=== PATIENT | male | born 1995 | race Caucasian/White ===

== ENCOUNTER 2021-12-02 16:49 | Emergency (ER) | payer OTHER, SELFPAY ==
[2021-12-02 17:13] VITALS: BP 153/91; PULSE 95; RESP 18; TEMP 36.8; O2SAT 97; BMI 27.9
[2021-12-02 18:05] LABS: Appearance Urine Clear (Clear); Bilirubin Urine Negative (Negative); Blood Urine 3+ (Negative); Color Urine Yellow (Yellow); Glucose Urine Negative (Negative); Ketones Urine 1+ (Negative); Leukocyte Esterase Urine Trace (Negative); Nitrite Urine Negative (Negative); Protein Urine Negative (Negative); Urobilinogen Urine 0.2 (0.2-1.0); pH Urine 6.5 (5.0-8.5)
[2021-12-02 18:08] LABS: Bacteria Urine Few; RBC Urine >100 (0-2); Squamous Epithelial Cell Urine Few (None-Few)
[2021-12-02 18:09] LABS: Mucus Urine Moderate
--- NOTE | 2021-12-02 19:57 | CRLHL7_ITS ---
For Patients: As a result of the Century Cures Act, medical imaging exams and procedure reports are released immediately into your electronic medical record. You may view this report before your referring provider. If you have questions, please contact your health care provider. INDICATION: Abdominal pain. TECHNIQUE: CT abdomen and pelvis without contrast. COMPARISON: May 19, 2017. FINDINGS: Lower chest: Scattered dependent atelectasis. Liver: Normal in size and attenuation. No suspicious masses. Gallbladder and bile ducts: No stones or inflammation. No biliary dilatation. Pancreas: Unremarkable. No mass or inflammation. Spleen: Normal in size. No masses. Adrenal glands: Normal in size. No nodules. Kidneys: Left-sided hydroureteronephrosis secondary to 9 millimeter obstructing UPJ stone. Left renal cystic lesion with tiny calcification. GI tract: Unremarkable. Normal in caliber. No sign of mass or inflammation. Normal appendix. Vasculature: Abdominal aorta is normal in caliber. Lymph nodes: No lymphadenopathy. Peritoneum/Abdominal Wall: Tiny fat containing umbilical hernia. No sign of mass or infiltration. No free air or significant free fluid. Pelvis: Unremarkable. No pelvic masses. Bones: Unremarkable for age. IMPRESSION: Left-sided hydroureteronephrosis secondary to a 9 millimeter obstructing UPJ stone. Please note that all CT scans at this facility use dose modulation, iterative reconstruction, and/or weight-based dosing when appropriate to reduce radiation dose to as low as reasonably achievable. Dictated by Fernando Palafox MD @ 12/02/2021 8:32:00 PM (Electronically Signed)
--- NOTE | 2021-12-02 20:13 | ED_ITS ---
HPI - Abdominal Pain General Date Seen: 12/02/21 Chief Complaint: Flank Pain Stated Complaint: Possible kidney stone Time Seen by Provider: 12/02/21 19:50 Source: patient Mode of arrival: ambulatory Limitations: no limitations History of Present Illness HPI narrative: Patient is a very nice 26-year-old gentleman who presents here with left-sided flank discomfort with radiation to his left groin, this occurred approximately 6-7 hours ago, is a associated with some blood in his urine. The blood on off for the last couple days took some ibuprofen approximately 10:00 a.m. and his pain is now gone away since he has had to wait 3 hours in the lobby. He has had no nausea no vomiting associated with this, but says it feels like a previous kidney stone he had. Denies any trauma falls fevers chills dysuria frequency rashes, coughing wheezing or shortness of breath. Otherwise healthy on no chronic medications, history of a recent vasectomy done 2 months ago by 1 of the general surgeons here. Related Data Previous Rx's Medication Instructions Recorded tamsulosin 0.4 mg capsule (Flomax) 0.4 mg PO DAILY #20 caps 12/02/21 Allergies Allergy/AdvReac Type Severity Reaction Status Date / Time No Known Allergies Allergy Unknown Verified 12/02/21 17:18 Review of Systems Status of ROS Reports: 10 or more systems reviewed and unremarkable except as noted in History and below PFSH PFS Social History Smoking Status: Never smoker Exam Narrative: Exam Narrative: Patient is seen with no apparent distress in room 5, pupils equal round reactive to light there is no scleral icterus redness TMs are normal oropharynx normal neck is supple full range of motion chest is clear bilaterally with easy respirations heart sounds are normal his abdomen is soft there is no guarding no past splenomegaly bowel sounds are normal. No CVA tenderness normal is noted. Skin reveals no petechiae or rashes moves all extremities independently and well. Const: Vital Signs, click to edit/add: Vital Signs - 24 hr 12/02/21 17:13 Temperature 98.2 F Pulse Rate [Left P ulse Oximeter] 95 Respiratory Rate 18 Blood Pressure [Ri ght Upper Arm] 153/91 H Pulse Oximetry 97 Oxygen Delivery Me thod Room Air Documenting provider has reviewed patient's vital signs: yes Course Course Hospital Course: Discussed with the patient and his that this is a rather large stone 50% chance of him passing out, I think we active maximize his medical management by using the Flomax, ibuprofen, Percocet, and Zofran as needed we went over signs and symptoms of worsening, he should follow-up I would recommend that he follow up with primary care this week, get a Urology referral. Return here to the ER if signs and symptoms of worsening occur that we discussed. Vital Signs Vital signs: Initial Vital Signs Temperature 98.2 F 12/02/21 17:13 Temperature Source Temporal Artery Scan 12/02/21 17:13 Pulse Rate 95 12/02/21 17:13 Respiratory Rate 18 12/02/21 17:13 Blood Pressure 153/91 H 12/02/21 17:13 Blood Pressure Mean 111 12/02/21 17:13 Blood Pressure Position Sitting 12/02/21 17:13 Pulse Oximetry 97 12/02/21 17:13 Oxygen Delivery Method 12/02/21 17:13 Vital Signs Temperature 98.2 F 12/02/21 17:13 Pulse Rate 95 12/02/21 17:13 Respiratory Rate 18 12/02/21 17:13 Blood Pressure 153/91 H 12/02/21 17:13 Pulse Oximetry 97 12/02/21 17:13 Oxygen Delivery Method 12/02/21 17:13 Temperature 98.2 F 12/02/21 17:13 Pulse Rate 95 12/02/21 17:13 Respiratory Rate 18 12/02/21 17:13 Blood Pressure 153/91 H 12/02/21 17:13 Pulse Oximetry 97 12/02/21 17:13 Oxygen Delivery Method 12/02/21 17:13 MDM - Abdominal Pain MDM Narrative Medical decision making narrative: During this evaluation of this patient I considered multiple differential diagnosis is which included the life-threatening such as appendicitis, aortic aneurysm, mesenteric ischemia, bowel perforation, volvulus, and bowel obstruction. Other differential diagnosis is include but are not limited to cholecystitis, pancreatitis, hepatitis, gastritis, GERD, diverticulitis, peptic ulcer disease, pyelonephritis/UTI, renal colic/stone, testicular torsion as well as other acute scrotal processes, inflammatory bowel disease, as well as other etiologies Differential Diagnosis Differential diagnosis: Likely abdominal pain, acute appendicitis, calculus of kidney, constipation, diverticulitis, gastroenteritis, pancreatitis and small bowel obstruction Medical Records Attestation: I reviewed the patient's medical records. Lab Data Attestation: I reviewed the patient's lab results. Labs: Lab Results 12/02/21 Range/Units 17:20 Urine Color Yellow (Yellow) Urine Appearance Clear (Clear) Urine pH 6.5 (5.0-8.5) Ur Specific [place] 1.020 (1.000-1.030) Urine Protein Negative (Negative) Urine Glucose (UA) Negative (Negative) Urine Ketones 1+ A (Negative) Urine Blood 3+ A (Negative) Urine Nitrite Negative (Negative) Urine Bilirubin Negative (Negative) Urine Urobilinogen 0.2 (0.2-1.0) Ur Leukocyte Esterase Trace A (Negative) Urine RBC >100 A (0-2) Urine WBC 10-25 A (0-5) Ur Squamous Epith Cells Few (None-Few) Urine Bacteria Few A (None) Urine Mucus Moderate A (None) Imaging Data CT Chest/Ab/Pelvis: Attestation: I have reviewed the pertinent imaging results. My impression: Left-sided large UPJ stone with hydronephrosis Radiologist's impression: Patient: JOSEP RAMIREZ Facility:?[facility] Patient ID:?[id number] Site Patient ID:?[id number]. Site :?[id number] Study:?CT Abdomen/Pelvis W/O-12/02/2021 8:06:34 PM Ordering Physician:Carlos Bravo Final Report: INDICATION: Abdominal pain. TECHNIQUE: CT abdomen and pelvis without contrast. COMPARISON: May 19, 2017. FINDINGS: Lower chest: Scattered dependent atelectasis. Liver: Normal in size and attenuation. No suspicious masses. Gallbladder and bile ducts: No stones or inflammation. No biliary dilatation. Pancreas: Unremarkable. No mass or inflammation. Spleen: Normal in size. No masses. Adrenal glands: Normal in size. No nodules. Kidneys: Left-sided hydroureteronephrosis secondary to 9 millimeter obstructing UPJ stone. Left renal cystic lesion with tiny calcification. GI tract: Unremarkable. Normal in caliber. No sign of mass or inflammation. Normal appendix. Vasculature: Abdominal aorta is normal in caliber. Lymph nodes: No lymphadenopathy. Peritoneum/Abdominal Wall: Tiny fat containing umbilical hernia. No sign of mass or infiltration. No free air or significant free fluid. Pelvis: Unremarkable. No pelvic masses. Bones: Unremarkable for age. IMPRESSION: Left-sided hydroureteronephrosis secondary to a 9 millimeter obstructing UPJ stone. Please note that all CT scans at this facility use dose modulation, iterative reconstruction, and/or weight-based dosing when appropriate to reduce radiation dose to as low as reasonably achievable. Dictated by Fernando Palafox MD @ 12/02/2021 8:32:00 PM (Electronic Signature) Discharge Plan Discharge Clinical Impression: Renal colic Patient Disposition: Home w/ Parent or Adult Condition: Stable Instructions: Renal Colic (ED), Lithotripsy (DC) Additional Instructions: Home rest use of ibuprofen 800 mg p.o. t.i.d., use of breakthrough Vicodin for the discomfort, Zofran for nausea vomiting, and then also Flomax. Follow-up with Urology, as this is a rather large stone. Return here if increasing fevers chills nausea vomiting. Prescriptions: New tamsulosin [Flomax] 0.4 mg capsule 0.4 mg PO DAILY Qty: 20 2RF Follow Up/Referrals: Generic,Amb Provider [Primary Care Provider] - Stand Alone Forms: [employer] Info Instructions
[2021-12-02 21:17] VITALS: BP 135/78; PULSE 79; RESP 18; TEMP 36.8; O2SAT 97
[2021-12-02 21:18] VITALS: BP 135/78; PULSE 79; RESP 18; TEMP 36.8
== END 2021-12-02 21:18 | disposition home or self-care (01) ==
PROVIDERS: Emergency Provider Family Medicine
DX: N13.2 Hydronephrosis with renal and ureteral calculous obstruction (principal); Z87.442 Personal history of urinary calculi; Z79.899 Other long term (current) drug therapy
CPT/HCPCS: 74176; 81001; 87086; 99284

== ENCOUNTER 2022-02-08 05:05 | Emergency (ER) | payer OTHER, SELFPAY ==
[2022-02-08 05:11] VITALS: BP 147/95; PULSE 78; RESP 16; TEMP 36.7; O2SAT 99
[2022-02-08] MEDS: GI COCKTAIL (VISC LIDO/ANTACID) 30 ML PO (05:20)
--- NOTE | 2022-02-08 05:26 | ED.ABDPAIN ---
HPI - Abdominal Pain General Chief Complaint: Abdominal Pain Stated Complaint: Stomach burning Time Seen by Provider: 02/08/22 05:09 History of Present Illness HPI narrative: Pt is a 26 year old gentleman with a history of gerd who comes in with worsening burning in his epigastrium.Pt had an episode of gastroenteritis 1 week ago. Those symptoms of nausea and vomiting have resolved but his reflux and dyspeptic symptoms have worsened. Pt states that food doesnt seem to make his symptoms worse. Pt is concerned that he may have an ulcer. Pt has no blood in his stool. No weight loss, night sweats, chills, chest pain or shortness of breath. No overt abd pain only burning in his epigastrium. Related Data Home Medications Medication Instructions Recorded Confirmed omeprazole .ROUTE DAILY 02/08/22 Previous Rx's Medication Instructions Recorded tamsulosin 0.4 mg capsule (Flomax) 0.4 mg PO DAILY #20 caps 12/02/21 Allergies Allergy/AdvReac Type Severity Reaction Status Date / Time No Known Allergies Allergy Unknown Verified 12/02/21 17:18 Review of Systems Status of ROS Reports: 10 or more systems reviewed and unremarkable except as noted in History and below [facility] Medical History Acid reflux Kidney stones Surgical History No significant past surgical history Social History Smoking Status: Never smoker Do you use any of these nicotine containing products: None How often do you have a drink containing alcohol: never How often do you have six or more drinks on one occasion: Never AUDIT-C Alcohol total score: 0 Non-prescribed substance use: denies use Exam Narrative: Exam Narrative: EXAM GENERAL: Patient appears comfortable and well. EYES: No scleral icterus. THYROID: no thyroid nodules or thyromegaly. LYMPH: No supraclavicular or cervical lymphadenopathy. SKIN: Visible skin seen during exam normal or with benign process only. EXT: No dependent lower extremity pedal edema. HEART: Regular rate and rhythm with no murmurs, rubs, or gallops. LUNGS: Clear to auscultation bilaterally with no crackles or wheezes. ABD: Soft, non tender, non distended. PSYCH: Good eye contact, speech is not pressured. Const: Vital Signs, click to edit/add: Vital Signs - 24 hr 02/08/22 05:11 Temperature 98.1 F Pulse Rate [Left F emoral] 78 Respiratory Rate 16 Blood Pressure [Ri ght Upper Arm] 147/95 H Pulse Oximetry 99 Oxygen Delivery Me thod Room Air Course Course Hospital Course: Pt seen and examined. GI cocktail given with worsening of symptoms. Reevaluation(s) Reevaluation #1: Because symptoms worsened with GI cocktail, I did proceed with EKG which was negative for ischemia upon my review. CT abd and pelvis was normal. CBC, CMP Amlyase normal upon my review except mild elevation of transaminases. Time: 06:47 Vital Signs Vital signs: Initial Vital Signs Temperature 98.1 F 02/08/22 05:11 Temperature Source Temporal Artery Scan 02/08/22 05:11 Pulse Rate 78 02/08/22 05:11 Respiratory Rate 16 02/08/22 05:11 Blood Pressure 147/95 H 02/08/22 05:11 Blood Pressure Mean 112 02/08/22 05:11 Blood Pressure Position Sitting 02/08/22 05:11 Pulse Oximetry 99 02/08/22 05:11 Oxygen Delivery Method 02/08/22 05:11 Vital Signs Temperature 98.1 F 02/08/22 05:11 Pulse Rate 78 02/08/22 05:11 Respiratory Rate 16 02/08/22 05:11 Blood Pressure 147/95 H 02/08/22 05:11 Pulse Oximetry 99 02/08/22 05:11 Oxygen Delivery Method 02/08/22 05:11 Temperature 98.1 F 02/08/22 05:11 Pulse Rate 78 02/08/22 05:11 Respiratory Rate 16 02/08/22 05:11 Blood Pressure 147/95 H 02/08/22 05:11 Pulse Oximetry 99 02/08/22 05:11 Oxygen Delivery Method 02/08/22 05:11 MDM - Abdominal Pain MDM Narrative Medical decision making narrative: Pt is a 26 year old gentleman with a history of gerd whose symptoms have worsened since an episode of gastroenteritis 1 week ago. Pt has no other alarming symptoms. Pt given GI cocktail with worsening of symptoms. Workup then proceeded to CT of abd and pelvis, cbc, cmp, amylase all negative except mild elevation of transaminases. Pt then began to feel better. Pt chronically on PPI which we will move to BID for 2 weeks. If no improvement of if symptoms worsen, would recommend follow up with PCP to consider EGD. Would also recommend PCP follow up with possible US of Gallbladder if symptoms worsen again. Differential Diagnosis Differential diagnosis: Likely abdominal pain, acute appendicitis, constipation, diverticulitis, endometriosis, gastroenteritis, pancreatitis and small bowel obstruction Medical Records Attestation: I reviewed the patient's medical records. Lab Data Labs: Lab Results 02/08/22 02/08/22 02/08/22 Range/Units 05:45 05:45 05:45 WBC 6.45 (4.50-11.00) K/uL RBC 5.01 (4.30-5.90) m/uL Hgb 14.9 (13.5-17.5) gm/dL Hct 43.9 (37.0-53.0) % MCV 88 (80-100) fL MCH 30 (26-34) pg MCHC 34 (32-36) gm/dL RDW Coeff of [place] 12.7 (11.5-15.5) % Plt Count 265 (140-440) K/uL Neut % (Auto) 38.7 L (42.0-72.0) % Lymph % (Auto) 51.0 H (20-44) % [place] % (Auto) 8.4 (0.0-11.0) % Eos % (Auto) 1.7 (0.0-7.0) % Baso % (Auto) 0.2 (0.0-3.0) % Neut # (Auto) 2.50 (1.7-7.0) K/uL Lymph # (Auto) 3.30 H (0.90-2.90) K/uL [place] # (Auto) 0.50 (0.00-0.90) K/UL Eos # (Auto) 0.11 (0.00-0.50) K/uL Baso # (Auto) 0.01 (0.00-0.30) K/uL Sodium 141 (135-149) mmol/L Potassium 3.7 (3.6-5.1) mmol/L Chloride 106 (96-114) mmol/L Carbon Dioxide 26 (20-32) mmol/L BUN 16 (5-24) mg/dL Creatinine 0.7 (0.5-1.5) mg/dL Estimated GFR 130 ml/min Glucose 103 (60-115) mg/dL Calcium 9.0 (8.4-10.6) mg/dL Total Bilirubin 1.2 (0.1-1.5) mg/dL AST 72 H (12-35) U/L ALT 77 H (4-50) U/L Alkaline Phosphatase 55 (40-150) U/L Troponin I < 0.01 L (0.01-0.04) ng/mL Total Protein 7.4 (6.0-8.3) g/dL Albumin 4.5 (3.3-5.0) g/dL Amylase 36 (18-89) U/L Discharge Plan Discharge Clinical Impression: Dyspepsia Patient Disposition: Home, Self-Care Condition: Stable Instructions: Epigastric Pain (ED) Additional Instructions: Increase Omeprazole to twice daily for 2 weeks. Follow up with Primary Care to discuss EGD or Ultrasound if symptoms do not improve. Activity Level: No Restrictions Discharge Diet: Regular Prescriptions: No Action omeprazole .ROUTE DAILY tamsulosin [Flomax] 0.4 mg capsule 0.4 mg PO DAILY Qty: 20 2RF Follow Up/Referrals: Provider,Not a Local [Primary Care Provider] - Stand Alone Forms: [employer] Info Instructions
--- NOTE | 2022-02-08 05:36 | CRLHL7_ITS ---
For Patients: As a result of the Century Cures Act, medical imaging exams and procedure reports are released immediately into your electronic medical record. You may view this report before your referring provider. If you have questions, please contact your health care provider. INDICATION: epigastric paincompare to CTT 12.02.2021 and 05.19.2017 INDICATION: Epigastric abdominal pain. TECHNIQUE: CT abdomen and pelvis acquired with IV contrast. 95 cc of Isovue-300 IV. COMPARISON: CT of the abdomen and pelvis, 12/02/2021, 05/19/2017. FINDINGS: Lower chest: Mild bibasilar dependent atelectasis. Liver: Unremarkable. Spleen: Unremarkable. Pancreas: Unremarkable. Gallbladder and bile ducts: Unremarkable. Kidneys: There is a dilated calyx in the superior pole of the left kidney, which contains a stone, and associated cortical thinning. The stone measures 5 millimeters on image 55, series 2. this finding appears stable when compared with 12/02/2021. There is no hydronephrosis, hydroureter, or obstructive urolith. Pelvic phleboliths are present. Adrenal glands: Unremarkable. GI tract: Unremarkable. Appendix is normal in caliber, and appears retrocecal. The appendix is well seen on image 111, series 2. Vascular structures: Negative. No sign of aneurysm. Lymph nodes: Nonenlarged retroperitoneal lymph nodes. These are stable when compared with 12/02/2021. Similar findings were present on the CT from 05/19/2017. Miscellaneous: Unremarkable. No free air or significant free fluid. Pelvic Organs: Unremarkable. Bones: Unremarkable for age. IMPRESSION: 1. No acute findings are seen to explain abdominal pain. 2. Left hydronephrosis and proximal hydroureter, secondary to a stone in the left proximal ureter on the CT from 12/02/2021, have resolved today. 3. The pancreas appears normal on CT. No adjacent inflammatory changes. 4. No gastric or duodenal wall thickening. Dictated by Valerio Joseph MD @ 02/08/2022 6:42:37 AM Please note that all CT scans at this facility use dose modulation, iterative reconstruction, and/or weight-based dosing when appropriate to reduce radiation dose to as low as reasonably achievable. Dictated by: Valerio Joseph MD @ 02/08/2022 06:43:07 (Electronically Signed)
[2022-02-08 05:51] LABS: Basophils Absolute Auto 0.01 K/uL (0.00-0.30); Basophils Percent Auto 0.2 % (0.0-3.0); Eosinophils Absolute Auto 0.11 K/uL (0.00-0.50); Eosinophils Percent Auto 1.7 % (0.0-7.0); Hematocrit 43.9 % (37.0-53.0); Hemoglobin* 14.9 gm/dL (13.5-17.5); Mean Corpuscular HGB Conc 34 gm/dL (32-36); Mean Corpuscular Hemoglobin 30 pg (26-34); Mean Corpuscular Volume 88 fL (80-100); Monocytes Percent Auto 8.4 % (0.0-11.0); Neutrophils Percent Auto 38.7 % (42.0-72.0); Platelet Count* 265 K/uL (140-440); RDW Coefficient of Variation % 12.7 % (11.5-15.5); Red Blood Count 5.01 m/uL (4.30-5.90); White Blood Count* 6.45 K/uL (4.50-11.00)
[2022-02-08 06:05] LABS: Slide Review Reflex No
[2022-02-08 06:07] LABS: Albumin* 4.5 g/dL (3.3-5.0)
[2022-02-08 06:08] LABS: Chloride* 106 mmol/L (96-114); Potassium* 3.7 mmol/L (3.6-5.1); Sodium* 141 mmol/L (135-149)
[2022-02-08 06:10] LABS: Amylase* 36 U/L (18-89); Aspartate Amino Transferase* 72 U/L (12-35); Bilirubin Total* 1.2 mg/dL (0.1-1.5); Blood Urea Nitrogen* 16 mg/dL (5-24); Carbon Dioxide* 26 mmol/L (20-32); Creatinine* 0.7 mg/dL (0.5-1.5); Estimated Glomerular Filt Rate 130 ml/min; Total Protein* 7.4 g/dL (6.0-8.3)
[2022-02-08 06:11] LABS: Alanine Aminotransferase* 77 U/L (4-50); Alkaline Phosphatase* 55 U/L (40-150); Glucose* 103 mg/dL (60-115)
[2022-02-08 06:33] LABS: Troponin I* < 0.01 ng/mL (0.01-0.04)
[2022-02-08 06:59] VITALS: BP 133/76; PULSE 71; RESP 16
== END 2022-02-08 07:00 | disposition home or self-care (01) ==
PROVIDERS: Emergency Provider Internal Medicine
DX: R10.13 Epigastric pain (principal)
CPT/HCPCS: 36415; 74177; 80053; 82150; 84484; 85025; 93005; 99283; 99284; 99285; A9270; Q9967

== ENCOUNTER 2022-08-04 16:49 | Emergency (ER) | payer OTHER, SELFPAY ==
[2022-08-04 17:11] VITALS: BP 128/80; PULSE 110; TEMP 36.7; O2SAT 96; BMI 27.2
[2022-08-04 19:34] VITALS: BP 140/78; PULSE 70; RESP 18; O2SAT 97
--- NOTE | 2022-08-04 20:48 | ED.ABDPAIN ---
HPI - Abdominal Pain General Time Seen by Provider: 20:48 Date Seen: 08/04/22 Chief Complaint: Abdominal Pain Stated Complaint: Stomach issues Time Seen by Provider: 08/04/22 19:22 Source: patient, RN notes reviewed and old records reviewed Mode of arrival: ambulatory Limitations: no limitations History of Present Illness HPI narrative: Akira is a very pleasant 27-year-old male with history of acid reflex presents to the emergency room with abdominal discomfort diarrhea and 1 episode of vomiting today. Patient notes that he awoke this morning and states he just did not feel well. He had discomfort in his abdomen and he shows this to be the upper mid aspect of his belly and this was associated with diarrhea that has been nonbloody throughout the day. He has gone at least 8 times. He did have 1 episode of vomiting at approximately 1445 hours. He notes that he feels like he has acid reflux as well. He notes that this happened 2 weeks ago and then shortly before [place]. Usually these episodes only last a few days. He notes the abdominal discomfort seems to be a little bit worse than in the past. Two weeks ago he also notes that he had an episode of tingling of his toes and hands that lasted for 1 hour. It got better once he took a warm bath. This is not the case today. Patient denies any fever chills cough cold congestion. He has had no known exposures to illnesses. He has not been on antibiotics recently. He has not had any travel or eaten any uncooked foods. No history of weight loss, ulcerative colitis or Crohn's disease. He is typically and [facility] patient. States he called them today and never received a phone call back. Related Data Home Medications Medication Instructions Recorded Confirmed omeprazole .Route DAILY 02/08/22 04/20/22 Previous Rx's Medication Instructions Recorded tamsulosin 0.4 mg capsule (Flomax) 0.4 mg PO DAILY #20 caps 12/02/21 amoxicillin 500 mg capsule 1,000 mg (2 x 500 mg) PO QDAY #20 04/20/22 caps Allergies Allergy/AdvReac Type Severity Reaction Status Date / Time No Known Allergies Allergy Unknown Verified 08/04/22 17:15 Review of Systems Status of ROS Reports: 10 or more systems reviewed and unremarkable except as noted in History and below Const Reports: malaise; Denies: fever or chills ENMT Denies: throat pain, neck pain, difficulty swallowing or hoarseness Cardio Denies: chest pain, palpitations, swelling of feet/ankles, lightheadedness or shortness of breath with exertion Resp Denies: shortness of breath, cough or wheezing GI Reports: abdominal pain, nausea, vomiting, heartburn and diarrhea; Denies: constipation, difficulty swallowing or blood in stool Denies: painful urination or urinary frequency Musculo Denies: back pain, neck pain or extremity pain Neuro Denies: numbness in extremities Endo Denies: excessive urination or excessive thirst Allergy/Immuno Denies: wheezing PFSH [facility] Medical History Acid reflux ?K21.9 - Gastro-esophageal reflux disease without esophagitis (ICD-10) Kidney stones ?N20.0 - Calculus of kidney (ICD-10) Surgical History No significant past surgical history Social History Smoking Status: Never smoker Do you use any of these nicotine containing products: None How often do you have a drink containing alcohol: never How often do you have six or more drinks on one occasion: Never AUDIT-C Alcohol total score: 0 Non-prescribed substance use: denies use Exam Narrative: Exam Narrative: Akira is alert and oriented. Very pleasant gentleman. He is somewhat fatigued in appearance but nontoxic. Eyes are clear. Oral cavity with moist mucous membranes. Neck is supple without lymphadenopathy. Heart with tachycardia but regular rhythm. Lungs are clear bilaterally. Abdomen is soft and nontender throughout. Moving all extremities. Lower extremities without edema or calf tenderness. Const: Vital Signs, click to edit/add: Vital Signs - 24 hr 08/04/22 17:11 08/04/22 19:34 08/04/22 21:00 Temperature 98.0 F Pulse Rate [Right Pulse Oximeter] 110 H 70 78 Respiratory Rate 18 18 Blood Pressure [Ri ght Upper Arm] 128/80 140/78 H 124/76 Pulse Oximetry 96 97 98 Oxygen Delivery Me thod Room Air Room Air Room Air Documenting provider has reviewed patient's vital signs: yes Course Course Hospital Course: Differential diagnosis includes but is not limited to irritable bowel, pancreatitis, colitis, enterocolitis, Crohn's disease, ulcerative colitis, viral gastroenteritis. Will place IV and use Zofran and Toradol for discomfort and nausea. 1 L of normal saline. Will check urinalysis, CBC, comprehensive panel, lipase, CRP is. At this time abdominal exam is reassuring and patient has no recent history of risk factors for C diff or food-borne illness. Vital Signs Vital signs: Initial Vital Signs Temperature 98.0 F 08/04/22 17:11 Temperature Source Temporal Artery Scan 08/04/22 17:11 Pulse Rate 110 H 08/04/22 17:11 Pulse Rhythm Regular 08/04/22 17:11 Pulse Strength 3+ Normal 08/04/22 17:11 Blood Pressure 128/80 08/04/22 17:11 Blood Pressure Mean 96 08/04/22 17:11 Blood Pressure Position Sitting 08/04/22 17:11 Pulse Oximetry 96 08/04/22 17:11 Oxygen Delivery Method Room Air 08/04/22 17:11 Vital Signs Temperature 98.0 F 08/04/22 17:11 Pulse Rate 110 H 08/04/22 17:11 Blood Pressure 128/80 08/04/22 17:11 Pulse Oximetry 96 08/04/22 17:11 Oxygen Delivery Method Room Air 08/04/22 17:11 Temperature 98.0 F 08/04/22 17:11 Pulse Rate 78 08/04/22 21:00 Respiratory Rate 18 08/04/22 21:00 Blood Pressure 124/76 08/04/22 21:00 Pulse Oximetry 98 08/04/22 21:00 Oxygen Delivery Method Room Air 08/04/22 21:00 MDM - Abdominal Pain MDM Narrative Medical decision making narrative: 1. Diarrhea-no significant episodes of diarrhea while in the emergency room. No complaints of blood. This is been a recurrent problem. I am wondering if patient has underlying irritable bowel verses other GI pathology. At this time I do suggest follow-up with Dr. Ross, GI physician at the [facility]. I think Akira would benefit from endoscopy and colonoscopy. He has been on PPIs for 8 years at this point. 2. Abdominal pain-improved after Zofran and Toradol. No worrisome findings on exam abdominal exam or with laboratory values. No right upper quadrant tenderness or right lower quadrant rebound. 3. Disposition-home at this time. Suggest pushing fluids. Follow-up with [facility]. Note magnesium technically within normal limits but given chronic PPI use would suggest magnesium supplementation with magnesium glycinate per bottle instructions daily. Return to the emergency room for fever, localized pain, worsening symptoms and as needed. Medical Records Attestation: I reviewed the patient's medical records. Lab Data Attestation: I reviewed the patient's lab results. Labs: Lab Results 08/04/22 08/04/22 08/04/22 Range/Units 21:11 21:34 22:05 WBC 10.21 (4.50-11.00) K/uL RBC 5.42 (4.30-5.90) m/uL Hgb 15.9 (13.5-17.5) gm/dL Hct 47.1 (37.0-53.0) % MCV 87 (80-100) fL MCH 29 (26-34) pg MCHC 34 (32-36) gm/dL RDW Coeff of Betito 12.9 (11.5-15.5) % Plt Count 257 (140-440) K/uL Neut % (Auto) 66.3 (42.0-72.0) % Lymph % (Auto) 23.5 (20-44) % [place] % (Auto) 8.1 (0.0-11.0) % Eos % (Auto) 1.7 (0.0-7.0) % Baso % (Auto) 0.2 (0.0-3.0) % Neut # (Auto) 6.77 (1.7-7.0) K/uL Lymph # (Auto) 2.40 (0.90-2.90) K/uL [place] # (Auto) 0.80 (0.00-0.90) K/UL Eos # (Auto) 0.17 (0.00-0.50) K/uL Baso # (Auto) 0.02 (0.00-0.30) K/uL Sodium 134 L (135-149) mmol/L Potassium 3.8 (3.6-5.1) mmol/L Chloride 104 (96-114) mmol/L Carbon Dioxide 24 (20-32) mmol/L BUN 25 H (5-24) mg/dL Creatinine 0.6 (0.5-1.5) mg/dL Estimated Creat Clear 195.22 Estimated GFR 135 ml/min Glucose 99 (60-115) mg/dL Calcium 9.1 (8.4-10.6) mg/dL Magnesium 1.8 (1.5-2.6) mg/dL Total Bilirubin 1.6 H (0.1-1.5) mg/dL AST 31 (12-35) U/L ALT 34 (4-50) U/L Alkaline Phosphatase 56 (40-150) U/L C-Reactive Protein 0.7 (0.5-1.0) mg/dL Total Protein 7.8 (6.0-8.3) g/dL Albumin 4.6 (3.3-5.0) g/dL Lipase 49 (23-300) U/L Urine Color Yellow (Yellow) Urine Appearance Clear (Clear) Urine pH 5.5 (5.0-8.5) Ur Specific [place] >= 1.030 (1.000-1.030) Urine Protein Negative (Negative) Urine Glucose (UA) Negative (Negative) Urine Ketones Negative (Negative) Urine Blood Negative (Negative) Urine Nitrite Negative (Negative) Urine Bilirubin Negative (Negative) Urine Urobilinogen 0.2 (0.2-1.0) Ur Leukocyte Esterase Negative (Negative) Urine RBC 0-2 (0-2) Urine WBC 0-2 (0-5) Ur Squamous Epith Cells Few (None-Few) Urine Bacteria Few A (None) Fine Granular Casts Few A (None) Lab Acknowledgement Test Added Discharge Plan Discharge Clinical Impression: Diarrhea Qualifiers: Diarrhea type: unspecified type Qualified Code(s): R19.7 - Diarrhea, unspecified Abdominal pain Qualifiers: Abdominal location: generalized Qualified Code(s): R10.84 - Generalized abdominal pain Patient Disposition: Home, Self-Care Condition: Improved Additional Instructions: Recommend pushing fluids. I recommend follow-up with your primary clinic and scheduling specialty consultation with the GI physician. I think that you may need upper endoscopy and colonoscopy. Meant starting magnesium glycinate per bottle instructions. Return to the emergency room for fever, worsening symptoms and as needed. Prescriptions: No Action amoxicillin 500 mg capsule 1,000 mg PO QDAY Qty: 20 0RF omeprazole .Route DAILY tamsulosin [Flomax] 0.4 mg capsule 0.4 mg PO DAILY Qty: 20 2RF Follow Up/Referrals: Provider,Not a Local [Primary Care Provider] - Stand Alone Forms: [employer] Info Instructions
[2022-08-04 21:00] VITALS: BP 124/76; PULSE 78; RESP 18; O2SAT 98
[2022-08-04] MEDS: ONDANSETRON 2 MG/ML inj 4 MG IVP (21:00)
[2022-08-04] MEDS: 0.9 % SODIUM CHLORIDE 1000 ml 1,000 ML IV (21:05)
[2022-08-04 21:34] LABS: Basophils Absolute Auto 0.02 K/uL (0.00-0.30); Basophils Percent Auto 0.2 % (0.0-3.0); Eosinophils Absolute Auto 0.17 K/uL (0.00-0.50); Eosinophils Percent Auto 1.7 % (0.0-7.0); Hematocrit 47.1 % (37.0-53.0); Hemoglobin* 15.9 gm/dL (13.5-17.5); Immature Granulocytes Abs Auto 0.02 K/uL (0.00-0.30); Immature Granulocytes Pct Auto 0.2 %; Lymphocytes Percent Auto 23.5 % (20-44); Mean Corpuscular HGB Conc 34 gm/dL (32-36); Mean Corpuscular Hemoglobin 29 pg (26-34); Mean Corpuscular Volume 87 fL (80-100); Monocytes Percent Auto 8.1 % (0.0-11.0); Neutrophils Absolute Auto 6.77 K/uL (1.7-7.0); Neutrophils Percent Auto 66.3 % (42.0-72.0); Platelet Count* 257 K/uL (140-440); RDW Coefficient of Variation % 12.9 % (11.5-15.5); Red Blood Count 5.42 m/uL (4.30-5.90); Slide Review Reflex No; White Blood Count* 10.21 K/uL (4.50-11.00)
[2022-08-04 21:45] LABS: Albumin* 4.6 g/dL (3.3-5.0); Chloride* 104 mmol/L (96-114); Sodium* 134 mmol/L (135-149)
[2022-08-04 21:46] LABS: Potassium* 3.8 mmol/L (3.6-5.1)
[2022-08-04 21:48] LABS: Alkaline Phosphatase* 56 U/L (40-150); Aspartate Amino Transferase* 31 U/L (12-35); Bilirubin Total* 1.6 mg/dL (0.1-1.5); Carbon Dioxide* 24 mmol/L (20-32); Creatinine* 0.6 mg/dL (0.5-1.5); Est. Creatinine Clearance* 195.22; Estimated Glomerular Filt Rate 135 ml/min; Total Protein* 7.8 g/dL (6.0-8.3)
[2022-08-04 21:49] LABS: Alanine Aminotransferase* 34 U/L (4-50); Blood Urea Nitrogen* 25 mg/dL (5-24); Calcium* 9.1 mg/dL (8.4-10.6); Glucose* 99 mg/dL (60-115); Lipase* 49 U/L (23-300); Magnesium* 1.8 mg/dL (1.5-2.6)
[2022-08-04 21:51] LABS: C Reactive Protein* 0.7 mg/dL (0.5-1.0)
[2022-08-04] MEDS: KETOROLAC 15 MG/ML inj IVP (22:05)
[2022-08-04 22:29] LABS: Appearance Urine Clear (Clear); Bilirubin Urine Negative (Negative); Blood Urine Negative (Negative); Color Urine Yellow (Yellow); Glucose Urine Negative (Negative); Ketones Urine Negative (Negative); Leukocyte Esterase Urine Negative (Negative); Nitrite Urine Negative (Negative); Protein Urine Negative (Negative); Specific Gravity Urine >= 1.030 (1.000-1.030); Urobilinogen Urine 0.2 (0.2-1.0); pH Urine 5.5 (5.0-8.5)
[2022-08-04 22:36] LABS: Bacteria Urine Few; Fine Granular Casts Urine Few; RBC Urine 0-2 (0-2); Squamous Epithelial Cell Urine Few (None-Few); WBC Urine 0-2 (0-5)
== END 2022-08-04 22:54 | disposition home or self-care (01) ==
PROVIDERS: Emergency Provider Family Medicine
DX: R10.84 Generalized abdominal pain (principal); R19.7 Diarrhea, unspecified
CPT/HCPCS: 36415; 80053; 81001; 83690; 83735; 85025; 86140; 87086; 96374; 96375; 99283; 99284; J1885; J2405; J7030